=== PATIENT | female | born 1960 | race Caucasian/White ===

== ENCOUNTER → 2017-01-16 | Outpatient (CLI) | payer OTHER ==
[~2017-01-16] MED LIST: AMLO10TA2 PO; ASCO-296 PO; CHOL40003 PO; CITA-50 PO; DEXA4TAB PO; DOCU-168 PO; FENT1PAT65 TOP; FENT1PAT68 TOP; FISH1CAP59 PO; FOLI1TAB15 PO; GABA-336 PO; HYDR200T4 PO; HYDR4TAB84 PO; LEVO50TA11 PO; LISI-15 PO; METH2.5T6 PO; MULT-806 PO; ONDA4TAB7 PO; PANT40TA27 PO; POLY17PO6 PO; PROM25TA7 PO; TAMO10TA PO
--- NOTE | 2017-01-16 12:43 | DI ---
Indication: ITS.REASON: C50.212 BREAST CA PROCEDURE: THORACIC SPINE SERIES, 3 VIEW: Encounter: Initial Comparison: Thoracic spine radiographs dated June 14, 2016 Findings: Thoracolumbar spinal fusion hardware again noted extending from T9 through L1. No evidence of hardware fracture or failure. Cholecystectomy clips seen. Linear scarring or atelectasis in the left lung base. Interval development of a moderate to severe compression fracture at T9. Possible mild superior endplate deformity also at T10. Exaggerated thoracic stenosis. Degenerative change in the visualized cervical spine. Impression: New moderate to severe compression fracture of T9. .
== END ==
LOC: LAB 11:13
PROVIDERS: ATTEND Internal Medicine Medical Oncology
DX: C50.212 Malignant neoplasm of upper-inner quadrant of left female breast (principal); M48.54XA Collapsed vertebra, not elsewhere classified, thoracic region, initial encounter for fracture

== ENCOUNTER → 2017-01-17 | Outpatient (CLI) | payer OTHER ==
[~2017-01-17] MED LIST changes: +GADOBUTROL 10mMol/10ml INJECTION IV ONE; +SALINE FLUSH 10ml SYRINGE ONE
--- NOTE | 2017-01-18 10:59 | DI ---
Indication: ITS.REASON: M81.8 Other osteoporosis without current patholog; M54.6; C50.212 PROCEDURE: MRI THORACIC SPINE W/WO CONTRA: Encounter: Initial Comparison: Thoracic spine MRI dated May 18, 2016 and thoracic spine radiographs dated January 16, 2017 Technique: Multiplanar, multisequence, thoracic spine protocol MR imaging with and without contrast of the spine was acquired. Contrast: 5 mL of Gadavist FINDINGS: New exaggerated thoracic kyphosis seen. Posterior spinal fusion hardware extending from T9 through L1. Chronic T11 severe compression fracture with retropulsion and mild central canal narrowing. New compression fracture involving T9 is again seen with height loss. There is also some retropulsion of the posterior aspect of the T9 vertebra into the central canal causing impression on the cord and mild to moderate central canal stenosis. Interval worsening in the existing metastatic lesions with growth of several lesions and new lesions. For example a metastasis in the T7 vertebra on sagittal image #8 now measures 1.5 cm in diameter compared to 7 mm previously. Increasing metastatic involvement at T8 also seen. Large lesion at L3 replacing the majority of the vertebra. There are metastatic foci involving the posterior elements at L3 as well. Multifocal involvement in the L2 and L4 vertebra is also seen. There is superior endplate compression fracture of T10 with approximately 20% height loss. Much more extensive metastatic involvement of the upper to mid thoracic spine as well. No central spinal canal mass lesions identified. Impression: Worsening thoracic and lumbar vertebral metastases with presumed pathologic fractures of the T9 and T10 vertebra with retropulsion and moderate central canal stenosis. Large metastasis involving the L3 vertebra. .
== END ==
LOC: IMA 16:20
PROVIDERS: ATTEND Internal Medicine Medical Oncology
DX: C79.51 Secondary malignant neoplasm of bone (principal); M48.04 Spinal stenosis, thoracic region; M81.8 Other osteoporosis without current pathological fracture; C50.212 Malignant neoplasm of upper-inner quadrant of left female breast; M54.6 Pain in thoracic spine
CPT/HCPCS: 72157; A9585